=== PATIENT | male | born 1980 | race American Indian/Alaskan Native ===

== ENCOUNTER 2019-09-15 11:51 | Emergency (ER) | payer SELFPAY ==
--- NOTE | 2019-09-15 12:09 | Event Note ---
ED Screening Note Date of service: 09/15/19 Time: 12:05 ED Screening Note: This is a 39 y.o. M. that presents to the ER with headache after syncopal episode. He took ibuprofen prior to arrival. - chest pain, sob, fever, chills, body aches PMH of sickle cell This initial assessment/diagnostic orders/clinical plan/treatment(s) is/are subject to change based on patients health status, clinical progression and re- assessment by fellow clinical providers in the ED. Further treatment and workup at subsequent clinical providers discretion. Patient/guardian urged not to elope from the ED as their condition may be serious if not clinically assessed and managed. Initial orders include: CT of head Orthostatic BP Accucheck 114
--- NOTE | 2019-09-15 14:13 | Cat Scan Report ---
CT HEAD WITHOUT CONTRAST INDICATION / CLINICAL INFORMATION: headache, syncopal episode. TECHNIQUE: Axial imaging performed from the skull apex through the skull base without the use of cont rast. Sagittal and coronal reformatted images. All CT scans at this location are performed using CT dose reduction for ALARA by means of automated exposure control. COMPARISON: None available. FINDINGS: CEREBRAL PARENCHYMA: No significant abnormality. No acute territorial infarct. HEMORRHAGE: A small to medium amount of acute subarachnoid hemorrhage is identified throughout the [place]s surrounding the [place]. EXTRA-AXIAL SPACES: Normal in size and morphology for the patient's age. VENTRICULAR SYSTEM: Normal in size and morphology for the patient's age. MIDLINE SHIFT OR HERNIATION: None. CEREBELLUM / BRAINSTEM: No significant abnormality. CALVARIUM: No significant abnormality. ORBITS: Normal as visualized. PARANASAL SINUSES / MASTOID AIR CELLS: Normal as visualized. SOFT TISSUES of HEAD: No significant abnormality. ADDITIONAL FINDINGS: None. IMPRESSION: Acute subarachnoid hemorrhage. Probable nonvisualized [place] aneurysm rupture. Critical result discovered at 1400 hours and called to AFSHAN Palomares at 1405 hours on 09/15/2019. A re ad back was performed. Signer Name: Cody Nagy Jr, MD Signed: 09/15/2019 2:08 PM Workstation Name: [id number]
--- NOTE | 2019-09-15 14:31 | Emergency Department Report ---
- General Chief complaint: Dizziness Stated complaint: BLACKOUT Time Seen by Provider: 09/15/19 12:05 Source: patient Mode of arrival: Ambulatory Limitations: No Limitations - History of Present Illness Initial comments: pt is a 39-year-old male that presents emergency room with complaints of weakness, dizziness and headache. Patient states he passed out last night. Patient states she has a history of migraines. Patient states his headache is a 10 out of 10. Patient states headache is worsening. Patient states his dizziness and weakness are worse with movement and better with rest. Patient states his headache is better with rest and worse with movement. Patient denies fever and chills. Patient denies neck pain. MD Complaint: generalized weakness -: Sudden Location: generalized Severity: severe Severity scale (0 -10): 10 Quality: crushing, sharp Consistency: constant Improves with: rest Worsens with: movement Associated Symptoms: headaches, nausea/vomiting, syncope. denies: chest pain, confusion, dark stools, diaphoresis, dysuria, easy bruising, fever/chills, loss of appetite, myalgias, rash, shortness of breath - Related Data Allergies Allergy/AdvReac Type Severity Reaction Status Date / Time No Known Allergies Allergy Unverified 09/15/19 11:53 ED Review of Systems ROS: Stated complaint: BLACKOUT Other details as noted in HPI Constitutional: weakness. denies: chills, fever Eyes: denies: eye pain, eye discharge, vision change ENT: denies: ear pain, throat pain Respiratory: denies: cough, shortness of breath, wheezing Cardiovascular: denies: chest pain, palpitations Endocrine: no symptoms reported Gastrointestinal: nausea, vomiting. denies: abdominal pain, diarrhea Genitourinary: denies: urgency, dysuria Musculoskeletal: denies: back pain, joint swelling, arthralgia Skin: denies: rash, lesions Neurological: headache, weakness, vertigo. denies: paresthesias Psychiatric: denies: anxiety, depression Hematological/Lymphatic: denies: easy bleeding, easy bruising ED Past Medical Hx - Past Medical History Previous Medical History?: Yes Hx Sickle Cell Disease: Yes Hx Headaches / Migraines: Yes - Surgical History Past Surgical History?: No - Family History Family history: no significant - Social History Smoking Status: Never Smoker Substance Use Type: None ED Physical Exam - General Limitations: No Limitations General appearance: alert, in no apparent distress - Head Head exam: Present: atraumatic, normocephalic - Eye Eye exam: Present: normal appearance, PERRL Pupils: Present: normal accommodation - ENT ENT exam: Present: mucous membranes moist - Neck Neck exam: Present: normal inspection - Respiratory Respiratory exam: Present: normal lung sounds bilaterally. Absent: respiratory distress, wheezes, rales - Cardiovascular Cardiovascular Exam: Present: regular rate, normal rhythm. Absent: systolic murmur, diastolic murmur, rubs, gallop - GI/Abdominal GI/Abdominal exam: Present: soft, normal bowel sounds. Absent: distended, tenderness, guarding - Rectal Rectal exam: Present: deferred - Extremities Exam Extremities exam: Present: normal inspection - Back Exam Back exam: Present: normal inspection - Neurological Exam Neurological exam: Present: alert, oriented X3 - Psychiatric Psychiatric exam: Present: normal affect, normal mood - Skin Skin exam: Present: warm, dry, intact, normal color. Absent: rash - Assessment Assessment Interval: Baseline - Level of Consciousness 1a. Level of Consciousness: alert/keenly responsive - LOC Questions 1b. LOC Questions: answers both correctly - LOC Command 1c. LOC Commands: performs tasks correctly - Best Gaze 2. Best Gaze: normal - Visual 3. Visual: no visual loss - Facial Palsy 4. Facial Palsy: normal symmetrical movement - Motor Arm 5a. Motor Arm Left: no drift 5b. Motor Arm Right: no drift - Motor Leg 6a. Motor Leg Left: no drift 6b. Motor Leg Right: no drift - Limb Ataxia 7. Limb Ataxia: absent - Sensory 8. Sensory: normal - Best Language 9. Best Language: no aphasia - Dysarthria 10. Dysarthria: normal - Extinction and Inattention 11. Extinction/Inattention: no abnormality - Scoring Total Score: 0 Stroke Severity: No Stroke Symptoms ED Course Vital Signs 09/15/19 09/15/19 09/15/19 12:04 14:08 14:16 Temperature 97.3 F L Pulse Rate 73 Respiratory 18 Rate Blood Pressure 132/59 O2 Sat by Pulse 96 96 90 Oximetry 09/15/19 09/15/19 09/15/19 14:30 14:46 14:59 Temperature Pulse Rate Respiratory 16 Rate Blood Pressure O2 Sat by Pulse 92 95 100 Oximetry 09/15/19 09/15/19 09/15/19 15:00 15:15 15:30 Temperature Pulse Rate 71 72 Respiratory 20 22 Rate Blood Pressure 108/58 113/60 O2 Sat by Pulse 92 100 99 Oximetry 09/15/19 15:45 Temperature Pulse Rate 72 Respiratory 21 Rate Blood Pressure 110/55 O2 Sat by Pulse 100 Oximetry - Reevaluation(s) Reevaluation #1: Discussed all results with patient. Discussed plan of care and transfer patient. Patient agrees plan of care and transfer. Patient will be transferred via EMS to [facility] 09/15/19 14:52 - Consultations Consultation #1: [place] neurosurgery consult. 09/15/19 14:40 Dr. Jacobs has accepted the patient to be transfered to [place]. 09/15/19 14:48 ED Medical Decision Making - Lab Data Result diagrams: 09/15/19 14:50 09/15/19 14:50 - Radiology Data Radiology results: report reviewed CT HEAD WITHOUT CONTRAST INDICATION / CLINICAL INFORMATION: headache, syncopal episode. TECHNIQUE: Axial imaging performed from the skull apex through the skull base without the use of contrast. Sagittal and coronal reformatted images. All CT scans at this location are performed using CT dose reduction for ALARA by means of automated exposure control. COMPARISON: None available. FINDINGS: CEREBRAL PARENCHYMA: No significant abnormality. No acute territorial infarct. HEMORRHAGE: A small to medium amount of acute subarachnoid hemorrhage is identified throughout the [place] surrounding the [place]. EXTRA-AXIAL SPACES: Normal in size and morphology for the patient's age. VENTRICULAR SYSTEM: Normal in size and morphology for the patient's age. MIDLINE SHIFT OR HERNIATION: None. CEREBELLUM / BRAINSTEM: No significant abnormality. CALVARIUM: No significant abnormality. ORBITS: Normal as visualized. PARANASAL SINUSES / MASTOID AIR CELLS: Normal as visualized. SOFT TISSUES of HEAD: No significant abnormality. ADDITIONAL FINDINGS: None. IMPRESSION: Acute subarachnoid hemorrhage. Probable nonvisualized [place] aneurysm rupture. - Medical Decision Making Patient is a 39-year-old male that presents emergency room with dizziness, syncope, headache and weakness. Patient had a CT done and was found to have a subarachnoid hemorrhage. Patient transferred to [place] after a discussion with [place] neurosurgeon. Patient transferred via helicopter. - Differential Diagnosis headache. Weakness. Syncope. cranial hemorrhage. Critical Care Time: Yes Critical care time in (mins) excluding proc time.: 35 Critical care attestation.: If time is entered above; I have spent that time in minutes in the direct care of this critically ill patient, excluding procedure time. Critical Care Time: 35 minutes ED Disposition Clinical Impression: Dizziness, SAH (subarachnoid hemorrhage), Syncope and collapse Headache Qualifiers: Headache type: unspecified Headache chronicity pattern: acute headache In tractability: intractable Qualified Code(s): R51 - Headache Sickle cell anemia Qualifiers: Sickle-cell associated disorders: without crisis Qualified Code(s): D57.1 - Sickle-cell disease without crisis Disposition: DC/TX-70 ANOTHER TYPE HLTHCARE Is pt being admited?: No Does the pt Need Aspirin: No Condition: Critical Time of Disposition: 14:54
[2019-09-15] MEDS ORDERED: HYDROmorphone 1 MG/1 ML INJ IV ONE (14:33)
[2019-09-15] MEDS ORDERED: levETIRAcetam 1000 MG/NS 0.75% 1,000 MG/100 ML BAG IV ONE (14:33)
[2019-09-15] MEDS ORDERED: ONDANSETRON 4 MG/2 ML INJ IV ONE (14:47)
[2019-09-15 15:03] LABS: Hemoglobin 7.7 gm/dl (11.8-15.2); Mean Corpuscular HGB Conc 35 % (32-34); Mean Corpuscular Volume 83 fl (84-94); Red Blood Count 2.65 M/mm3 (3.65-5.03)
[2019-09-15 15:09] LABS: Platelet Count 269 K/mm3 (140-440); Red Cell Distribution Width 26.7 % (13.2-15.2)
[2019-09-15 15:15] LABS: Partial Thromboplastin Time 30.4 Sec. (24.2-36.6)
[2019-09-15 15:28] LABS: Alanine Aminotransferase 38 units/L (7-56); Albumin 4.4 g/dL (3.9-5); BUN/Creatinine Ratio 30; Blood Urea Nitrogen 6 mg/dL (9-20); Calcium 9.2 mg/dL (8.4-10.2); Hemolysis Index 15
[2019-09-15 15:51] VITALS: BP 110/55
[2019-09-15] MEDS ORDERED: SODIUM CHLORIDE 0.9% 1000 ML 1,000 ML IV ONE (15:56)
== END 2019-09-15 16:10 | disposition other institution (70) ==
LOC: ED 11:51
DX: S06.6X0A Traumatic subarachnoid hemorrhage without loss of consciousness, initial encounter (principal); G43.909 Migraine, unspecified, not intractable, without status migrainosus; D57.1 Sickle-cell disease without crisis; R55 Syncope and collapse; Z86.2 Personal history of diseases of the blood and blood-forming organs and certain disorders involving the immune mechanism; X58.XXXA Exposure to other specified factors, initial encounter; Y93.89 Activity, other specified; Y92.89 Other specified places as the place of occurrence of the external cause; Y99.8 Other external cause status
CPT/HCPCS: 36415; 70450; 80053; 82962; 85027; 85610; 85730; 93005; 93010; 96361; 96374; 96375; 99291; J1170; J1953; J2405; J7030